=== PATIENT | male | born 1990 | race Caucasian/White ===

== ENCOUNTER 2016-07-28 12:09 | Emergency (ER) | payer MEDICAID ==
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
[2016-07-28 14:38] LABS: % IMMATURE GRANULYOCYTES 0.4 % (0.0-1.1); ABSOLUTE IMMATURE GRANULOCYTES 0.06 10^3/uL (0.00-0.10); ADD DIFF? NO; ADD MORPH? NO; ADD SCAN? NO; ATYPICAL LYMPHOCYTE FLAG 10 (0-99); FRAGMENT RBC FLAG 0 (0-99); HEMATOCRIT 51.1 % (40.0-51.0); HEMOGLOBIN 18.5 g/dL (13.7-17.5); LEFT SHIFT FLG 0 (0-99); LIPEMIA HEMOLYSIS FLAG 90 (0-99); MEAN CELL HEMOGLOBIN 31.7 pg (27.9-34.1); MEAN CELL HEMOGLOBIN CONCENTR. 36.2 g/dL (32.4-36.7); MEAN CELL VOLUME 87.7 fL (81.5-99.8); PLATELET CLUMPS FLAG 0 (0-99); PLATELET COUNT 319 10^3/uL (150-400); RED BLOOD CELL COUNT 5.83 10^6/uL (4.40-6.38)
[2016-07-28 14:52] LABS: ANION GAP 15 mEq/L (8-16); CALCIUM 10.4 mg/dL (8.5-10.4); CARBON DIOXIDE 24 mEq/l (22-31); CHLORIDE 105 mEq/L (97-110); CREATININE 0.8 mg/dL (0.7-1.3); ETHANOL SERUM < 10 mg/dL (0-10); GLOMERULAR FILTRATION RATE > 60; GLUCOSE 100 mg/dL (70-100); POTASSIUM 4.4 mEq/L (3.5-5.2); SODIUM 144 mEq/L (134-144)
[2016-07-28 15:30] VITALS: RESP 16
[2016-07-28] MEDS ORDERED: NICOTINE 14 MG/24 HR PATCH TD SCH (16:30)
[2016-07-28] MEDS ORDERED: HYDROCODONE/APAP 5/325 TAB PO ONE (16:38)
[2016-07-28 20:06] VITALS: BP 141/83; PULSE 96; TEMP 97.5; O2SAT 95
== END 2016-07-28 20:07 | disposition home or self-care (01) ==
PROC: 0HQEXZZ Repair Left Lower Arm Skin, External Approach (ICD-10-PCS; principal; 2016-07-28)
DX: S61.512A Laceration without foreign body of left wrist, initial encounter (principal); S62.307A Unspecified fracture of fifth metacarpal bone, left hand, initial encounter for closed fracture; F17.200 Nicotine dependence, unspecified, uncomplicated; X78.0XXA Intentional self-harm by sharp glass, initial encounter; Y99.8 Other external cause status; Y93.89 Activity, other specified
CPT/HCPCS: 80305; G0480; L3807

== ENCOUNTER 2016-08-02 01:21 | Emergency (ER) | payer MEDICAID ==
[2016-08-02 01:29] VITALS: BP 114/71; PULSE 72; RESP 16; TEMP 97.5; O2SAT 98
--- NOTE | 2016-08-02 01:41 | EDPHY ---
H & P Stated Complaint: right hand injury 4 days ago HPI/ROS: HPI CHIEF COMPLAINT: Right hand pain HISTORY OF PRESENT ILLNESS: This patient 25-year-old male, sustained a boxer's fracture on his last ER visit after he became upset while in the emergency room and punched the emergency room wall he had an x-ray that confirmed a boxer's fracture she was splinted. Presents emergency room tonight as he took off his splint and now has worsening right hand pain no new trauma. He is here to get a new splint. Denies numbness or tingling or any focal weakness. He does complain of right lateral hand pain. After splint removal that he took off himself. Past Medical History: IV drug use Past Surgical History: no recent surgical history Social History: IV drug use, denies alcohol this evening Family History: noncontributory ROS REVIEW OF SYSTEMS: A comprehensive 10 point review of systems is otherwise negative aside from elements mentioned in the history of present illness. Exam Constitutional triage nursing summary reviewed, vital signs reviewed, awake/ alert. Eyes normal conjunctivae and sclera, EOMI, PERRLA. HENT normal inspection, atraumatic, moist mucus membranes, no epistaxis, neck supple/ no meningismus, no raccoon eyes. Respiratory clear to auscultation bilaterally, normal breath sounds, no respiratory distress, no wheezing. Cardiovascular rate normal, regular rhythm, no murmur, no edema, distal pulses normal. Gastrointestinal soft, non-tender, no rebound, no guarding, normal bowel sounds, no distension, no pulsatile mass. Genitourinary no CVA tenderness. Musculoskeletal right hand; ecchymosis and swelling over the dorsum 4th 5th metacarpal right hand, neurovascular intact good cap refill, good pulses, good sensation, full range of motion but tenderness palpation over the 4th and 5th metacarpal, no midline vertebral tenderness, full range of motion, no calf swelling, no tenderness of extremities, no meningismus, good pulses, neurovascularly intact. Skin pink, warm, & dry, no rash, skin atraumatic. Neurologic awake, alert and oriented x 3, AAOx3, moves all 4 extremities equally, motor intact, sensory intact, CN II-XII intact, normal cerebellar, normal vision, normal speech. Psychiatric normal mood/affect. Heme/Lymph/Immune no lymphadenopathy. Differential Diagnosis: Includes but is not limited to in a particular order healing boxer's fracture, need for new splint, soft tissue injury Medical Decision Making: plan for this patient no indication to re-x-ray he has not had any new trauma. However patient be resplinted. He understands he needs to follow up with Hand surgery. I also told him to please not remove the splint if he has any questions or concerns about a splint or it is causing him discomfort he should seek medical attention the emergency room. Source: Patient - Personal History Current Tetanus/Diphtheria Vaccine: Yes Current Tetanus Diphtheria and Acellular Pertussis (TDAP): Yes Tetanus Vaccine Date: 2013 - Medical/Surgical History Hx Asthma: No Hx Chronic Respiratory Disease: No Hx Diabetes: No Hx Cardiac Disease: No Hx Renal Disease: No Hx Cirrhosis: No Hx Alcoholism: No Hx HIV/AIDS: No Hx Splenectomy or Spleen Trauma: No Other PMH: R Knee injury, hand fx - Social History Smoking Status: Heavy smoker Constitutional: Initial Vital Signs Temperature (C) 36.4 C 08/02/16 01:25 Heart Rate 72 08/02/16 01:25 Respiratory Rate 16 08/02/16 01:25 Blood Pressure 114/71 08/02/16 01:25 O2 Sat (%) 98 08/02/16 01:25 O2 Delivery Mode Room Air Allergies/Adverse Reactions: No Known Allergies Allergy (Verified 08/02/16 01:29) Home Medications: Medication Instructions Recorded Hydrocodone/APAP 5/325 [[place] 1 tab PO Q4 #12 tab 07/28/16 5/325 (*)] Departure - Departure Disposition: Home, Routine, Self-Care Clinical Impression: Boxers fracture Qualifiers: Encounter type: initial encounter Fracture type: closed Qualified Code(s): S62.309A - Unspecified fracture of unspecified metacarpal bone, initial encounter for closed fracture Condition: Good Instructions: Hand Fracture (ED), Boxer Fracture (ED) Additional Instructions: 1. Please do not remove her splint. 2. if you have any questions or concerns about your splint return emergency room so we can assess it. 3.Please follow up with Hand surgery as you been previously directed. Referrals: NONE *PRIMARY CARE P,. [Primary Care Provider] - As per Instructions Mariposa Harrison MD [Medical Doctor] - As per Instructions
== END 2016-08-02 02:24 | disposition home or self-care (01) ==
DX: S62.309D Unspecified fracture of unspecified metacarpal bone, subsequent encounter for fracture with routine healing (principal); F17.200 Nicotine dependence, unspecified, uncomplicated; W22.01XD Walked into wall, subsequent encounter